=== PATIENT | female | born 1955 | race American Indian/Alaskan Native ===

== ENCOUNTER 2019-10-29 10:22 | Outpatient (CLI) | payer OTHER ==
--- NOTE | 2019-10-29 13:01 | XRay Report ---
BILATERAL HIPS 4 VIEWS INDICATION / CLINICAL INFORMATION: BILATERAL HIP PAIN. COMPARISON: None available. 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 No other significant skeletal abnormality Signer Name: Gómez Mackey MD FACJaspreet Signed: 10/29/2019 12:57 PM Workstation Name: [email or web address]
--- NOTE | 2019-10-29 13:01 | XRay Report ---
LUMBAR SPINE 3 VIEWS INDICATION / CLINICAL INFORMATION: BACK PAIN. COMPARISON: None available. FINDINGS: Mild anterolisthesis of L4 on L5 with mild narrowing of the disc space. Moderate degenerative change in the upper lumbar region. No other significant skeletal abnormality Signer Name: Gómez Mackey MD FACJaspreet Signed: 10/29/2019 12:56 PM Workstation Name: [email or web address]
== END 2019-10-29 10:23 | disposition home or self-care (01) ==
LOC: XRAY 10:22
PROVIDERS: ATTEND Internal Medicine
DX: M16.0 Bilateral primary osteoarthritis of hip (principal); M47.816 Spondylosis without myelopathy or radiculopathy, lumbar region; M48.061 Spinal stenosis, lumbar region without neurogenic claudication; M51.36 Other intervertebral disc degeneration, lumbar region
CPT/HCPCS: 72100; 73521